=== PATIENT | female | born 1980 | race Caucasian/White ===

== ENCOUNTER 2017-08-26 09:08 | Emergency (ER) | payer OTHER ==
[2017-08-26 09:15] VITALS: BP 110/80; PULSE 96; TEMP 97.9; BMI 25.7
--- NOTE | 2017-08-26 09:54 | PDOC ---
History of Present Illness - General History Source: Patient Exam Limitations: No Limitations - History of Present Illness Initial Comments: 08/26/17 11:56 37 year old female, with significant past medical history of cholecystectomy, who presents to the emergency room complaining of 2 days of RUQ pain, nausea, and sweats. The patient states that the RUQ pain started last night while she was at school and radiated to her back. She notes that this pain is similar to the pain she experienced in the past when she had her gallbladder removed. She does not believe that the pain is associated with food. Her last meal was rice and beef for dinner last night. She has not taken any medication for the pain. Denies fever, vomiting, diarrhea. Denies headache, lightheadedness, dizziness. Denies back pain, urinary symptoms. Allergies: NKDA <Johanna Ruggiero - Last Filed: 08/26/17 15:16> <Faheem Denise - Last Filed: 08/26/17 16:43> - General Chief Complaint: Pain, Acute Stated Complaint: ABD PAIN Time Seen by Provider: 08/26/17 09:46 Past History <Johanna Ruggiero - Last Filed: 08/26/17 15:16> - Past Medical History Other medical history: denies. - Surgical History Abdominal Surgery: Yes Cholecystectomy: Yes - Suicide/Smoking/Psychosocial Hx Smoking History: Never smoked Hx Alcohol Use: No Drug/Substance Use Hx: No Substance Use Type: None <aFheem Denise - Last Filed: 08/26/17 16:43> - Past Medical History Allergies/Adverse Reactions: Allergies Allergy/AdvReac Type Severity Reaction Status Date / Time No Known Allergies Allergy Verified 08/26/17 09:11 Home Medications: Ambulatory Orders Famotidine [Pepcid -] 40 mg PO DAILY #14 tablet 08/26/17 Review of Systems - Review of Systems Able to Perform ROS?: Yes Comments:: 08/26/17 11:56 GENERAL/CONSTITUTIONAL: +sweats. No fever or chills. No weakness. HEAD, EYES, EARS, NOSE AND THROAT: No change in vision. No ear pain or discharge. No sore throat. GASTROINTESTINAL: +RUQ. +nausea. No vomiting, diarrhea or constipation. GENITOURINARY: No dysuria, frequency, or change in urination. CARDIOVASCULAR: No chest pain or shortness of breath. RESPIRATORY: No cough, wheezing, or hemoptysis. MUSCULOSKELETAL: No joint or muscle swelling or pain. No neck or back pain. SKIN: No rash NEUROLOGIC: No headache, vertigo, loss of consciousness, or change in strength/ sensation. ENDOCRINE: No increased thirst. No abnormal weight change. HEMATOLOGIC/LYMPHATIC: No anemia, easy bleeding, or history of blood clots. ALLERGIC/IMMUNOLOGIC: No hives or skin allergy. <Johanna Ruggiero - Last Filed: 08/26/17 15:16> *Physical Exam - Vital Signs Last Vital Signs Temp Pulse Resp BP Pulse Ox 97.9 F 96 H 18 110/80 100 08/26/17 09:09 08/26/17 09:09 08/26/17 09:09 08/26/17 09:09 08/26/17 09:09 - Physical Exam Comments: 08/26/17 11:56 GENERAL: Awake, alert, and fully oriented, in no acute distress HEAD: No signs of trauma EYES: PERRLA, EOMI, sclera anicteric, conjunctiva clear ENT: Auricles normal inspection, hearing grossly normal, nares patent, oropharynx clear without exudates. Moist mucosa NECK: Normal ROM, supple, no lymphadenopathy, JVD, or masses LUNGS: Breath sounds equal, clear to auscultation bilaterally. No wheezes, and no crackles HEART: Regular rate and rhythm, normal S1 and S2, no murmurs, rubs or gallops ABDOMEN: +RUQ tenderness to palpation. +Epigastric tenderness to palpation. Soft , normoactive bowel sounds. No guarding, no rebound. No masses. No CVAT EXTREMITIES: Normal range of motion, no edema. No clubbing or cyanosis. No cords, erythema, or tenderness BACK: No midline spinal tenderness in cervical/thoracic/lumbar region NEUROLOGICAL: Normal speech, cranial nerves intact, negative pronator drift, 5/ 5 strength in all 4 extremities, normal sensation to light touch in all 4 extremities, normal cerebellar exam, normal gait, normal reflexes and tone SKIN: Warm, Dry, normal turgor, no rashes or lesions noted. <Johanna Ruggiero - Last Filed: 08/26/17 15:16> - Vital Signs Last Vital Signs Temp Pulse Resp BP Pulse Ox 97.9 F 96 H 18 110/80 100 08/26/17 09:09 08/26/17 09:09 08/26/17 09:09 08/26/17 09:09 08/26/17 09:09 <Faheem Denise - Last Filed: 08/26/17 16:43> ED Treatment Course - LABORATORY CBC & Chemistry Diagram: 08/26/17 09:55 08/26/17 09:55 - ADDITIONAL ORDERS Additional order review: Laboratory Results 08/26/17 08/26/17 11:20 09:55 Sodium 139 Potassium 4.4 Chloride 106 Carbon Dioxide 26 Anion Gap 7 L BUN 11 Creatinine 0.7 Creat Clearance w eGFR > 60 Random Glucose 95 Calcium 8.8 Total Bilirubin 0.4 AST 17 ALT 24 Alkaline Phosphatase 123 H Total Protein 7.4 Albumin 4.1 Urine Color Yellow Urine Appearance Slcloudy Urine pH 6.0 Urine Protein Negative Urine Glucose (UA) Negative Urine Ketones Negative Urine Blood 2+ H Urine Nitrite Negative Urine Bilirubin Negative Urine Urobilinogen Negative Urine RBC 1 Urine WBC 6 Ur Epithelial Cells Few Urine Mucus Few Urine HCG, Qual Negative 08/26/17 09:55 RBC 4.70 MCV 88.2 MCHC 33.4 RDW 13.2 MPV 8.5 Neutrophils % 80.1 Lymphocytes % 14.6 Monocytes % 4.4 Eosinophils % 0.3 Basophils % 0.6 - RADIOLOGY Radiograph Interpretation: 08/26/17 12:41 EXAM#: TYPE/EXAM: RESULT: [id number] US/ABDOMEN US -LIMITED HISTORY PROVIDED: Right upper quadrant pain. Real time examination of the abdomen demonstrates the following: The gallbladder is been removed. There is no evidence of intra or extrahepatic biliary duct dilatation. The liver is normal in size and texture with no intrahepatic masses seen. Hepatopedal flow is documented within the main portal vein. The pancreas is normal in size and texture with no pancreatic masses identified. There is no evidence of hydronephrosis or acute abnormalities of the right kidney. There is slight prominence of the renal pelvis, most likely a normal anatomic variant. There is no evidence of AAA. The IVC is patent. IMPRESSION: S/P cholecystectomy, essentially normal abdominal sonogram. Reported By: Mode Hutchins MD 08/26/17 1229 08/26/17 15:16 EXAM#: TYPE/EXAM: RESULT: [id number] CT/ABDOMEN PELVIS CT W/O CONTR EXAM: CT abdomen and pelvis without contrast. IMPRESSION: 1. Mild fullness of the right renal collecting system without camilla hydroureteronephrosis, may be attributed to a recently passed calculus. No ureteral or urinary bladder calculi. Punctate 1-2 mm non obstructing right renal calculus. 2. Circumferential thickening of the urinary bladder wall, despite underdistention, is concerning for cystitis. Please correlate clinically with urinalysis. 3. Asymmetric nodular soft tissue within the lower, outer quadrant of the left breast, measuring 2.9 x 1.9 cm. This lesion is indeterminate on CT. Please correlate with physical exam and non emergent breast sonogram. Follow-up with breast surgeon is suggested. These findings were discussed with Dr. Denise at 2:00 PM on 08/26/2017. Reported By: Alton Viramontes MD 08/26/17 1450 - Medications Given in the ED: ED Medications Discontinued Medications Generic Name Dose Route Start Last Admin Trade Name Freq PRN Reason Stop Dose Admin Famotidine/Sodium Chloride 50 mls @ 100 mls/hr 08/26/17 09:57 08/26/17 10:42 Pepcid 20 Mg Premixed Ivpb - IVPB 08/26/17 10:26 100 mls/hr ONCE ONE Administration Ondansetron HCl 4 mg 08/26/17 09:57 08/26/17 10:42 Zofran Injection IVPUSH 08/26/17 09:58 4 mg ONCE ONE Administration Sodium Chloride 1,000 ml 08/26/17 09:57 08/26/17 10:42 Normal Saline - IV 08/26/17 09:58 1,000 ml ONCE ONE Administration <Johanna Ruggiero - Last Filed: 08/26/17 15:16> - LABORATORY CBC & Chemistry Diagram: 08/26/17 09:55 08/26/17 09:55 <Faheem Denise - Last Filed: 08/26/17 16:43> Medical Decision Making - Medical Decision Making 08/26/17 12:34 37-year-old female with a history of a cholecystectomy presents with right upper quadrant pain radiating to the back. Vitals are normal. Patient with right upper quadrant and epigastric tenderness to palpation. Differential is wide and includes but not limited to retained stone versus renal colic versus pancreatitis. -labs -upt -UA -RUQ US -pain control -reassess 08/26/17 14:57 US negative. UA + for blood. CTAP with non obst 1mm R kidney stone and fullness to R collecting system with possible recently passed stone. Also, lesion in L breast that can not be r/o as ca. Results discussed with patient. On re-eval, she feels much better, denies current pain, rpt abd exam with no ttp. Possible renal colic vs gastritis. PT requests to go home. I discussed the physical exam findings, ancillary test results and final diagnoses with the patient. I answered all of the patient's questions. The patient was satisfied with the care received and felt comfortable with the discharge plan and treatment plan. The patient will call their primary care physician within 24 hours to arrange follow-up and will return to the Emergency Department with any new, persistent or worsening symptoms. <Faheem Denise - Last Filed: 08/26/17 16:43> *DC/Admit/Observation/Transfer - Attestations Scribe Attestion: 08/26/17 11:56 Documentation prepared by MARY Tarango, acting as medical sales consultant for Faheem Denise MD. <Johanna Ruggiero - Last Filed: 08/26/17 15:16> - Discharge Dispostion Admit: No - Attestations Physician Attestion: 08/26/17 15:14 I, Dr. Faheem Denise MD, attest that this document has been prepared under my direction and personally reviewed by me in its entirety. I further attest, that it accurately reflects all work, treatment, procedures and medical decision -making performed by me. <Faheem Denise - Last Filed: 08/26/17 16:43> Diagnosis at time of Disposition: Abdominal pain - Prescriptions Prescriptions: Famotidine [Pepcid -] 40 mg PO DAILY #14 tablet - Referrals Referrals: STAFF,NOT ON [Primary Care Provider] - - Patient Instructions Additional Instructions: Follow up with your primary doctor within [address] scan showed a lesion in your left breast that must be followed up as it could represent a cancer. Return to the emergency department for any new, worsening, or concerning symptoms. Print Language: CYMRO
[2017-08-26] MEDS ORDERED: ONDANSETRON 4 MG/2 ML VIAL IVPUSH ONE (09:57)
[2017-08-26] MEDS ORDERED: FAMOTIDINE 20 MG/50 ML IVPB 50 ML IVPB ONE ×2 (09:57→10:46)
[2017-08-26] MEDS ORDERED: SODIUM CHLORIDE 0.9% 500 ML INFUS.BAG IV ONE (09:57)
[2017-08-26] MEDS ORDERED: ONDANSETRON 4 MG/2 ML VIAL ONE (10:46)
[2017-08-26 10:50] LABS: BASOPHIL 0.6 % (0-2.0); EOSINOPHIL 0.3 % (0-4.5); MCH 29.5 pg (25.7-33.7); MCHC 33.4 g/dl (32.0-36.0); MEAN CELL VOLUME 88.2 fl (80-96); MEAN PLT VOLUME 8.5 fl (7.5-11.1); NEUTROPHILS 80.1 % (42.8-82.8); PLATELET COUNT 249 K/MM3 (134-434); RDW 13.2 % (11.6-15.6); WHITE BLOOD COUNT 9.6 K/mm3 (4.0-10.0)
[2017-08-26 11:16] LABS: ALBUMIN 4.1 g/dl (3.4-5.0); ANION GAP 7 (8-16); CALCIUM 8.8 mg/dL (8.5-10.1); CO2 26 mmol/L (21-32); CREATININE 0.7 mg/dL (0.55-1.02); GLUCOSE,RANDOM 95 mg/dL (74-106); SGPT/ALT 24 U/L (12-78)
[2017-08-26 11:18] LABS: ALK PHOS 123 U/L (45-117); BILIRUBIN,TOTAL 0.4 mg/dL (0.2-1.0); TOT PROT 7.4 g/dl (6.4-8.2)
[2017-08-26 11:20] LABS: SGOT/AST 17 U/L (15-37)
[2017-08-26 11:39] LABS: URINE APPEARANCE SLCLOUDY; URINE BILIRUBIN NEGATIVE (NEGATIVE); URINE BLOOD 2+ (NEGATIVE); URINE COLOR YELLOW; URINE GLUCOSE (UA) NEGATIVE (NEGATIVE); URINE KETONE NEGATIVE (NEGATIVE); URINE NITRITE NEGATIVE (NEGATIVE); URINE PROTEIN NEGATIVE (NEGATIVE); URINE UROBILINOGEN NEGATIVE mg/dL (0.2-1.0)
[2017-08-26 11:44] LABS: URINE MUCUS FEW; URINE RBC 1 /hpf (0-3); URINE WBC 6 /hpf (3-5)
[2017-08-26 13:02] LABS: TROPONIN I < 0.02 ng/ml (0.00-0.05)
[2017-08-26 17:57] LABS: URINE LEUK ESTERASE Negative (NEGATIVE)
== END 2017-08-26 15:24 | disposition home or self-care (01) ==
LOC: JER 09:08
PROC: 3E033GC Introduction of Other Therapeutic Substance into Peripheral Vein, Percutaneous Approach (ICD-10-PCS; principal; 2017-08-26)
DX: R10.10 Upper abdominal pain, unspecified (principal)
CPT/HCPCS: 36415; 74176-TC; 76705-TC; 80053; 81003; 81015; 83690; 84484; 84703; 85025; 87086; 96365; 99283-25